=== PATIENT | male | born 1960 | race Caucasian/White ===

== ENCOUNTER 2018-04-05 09:32 | Outpatient (CLI) | payer OTHER ==
--- NOTE | 2018-04-05 20:34 | RAD ---
CERVICAL SPINE TWO VIEWS 04/05/18 AP and lateral views are provided with no prior films available for comparison. The disc spaces are n ormal in height. There are prominent anterior osteophytes beginning at C3 and below. The largest is a t the C5-C6 interspace anteriorly and to a lesser extent C6-C7. If there are radicular symptoms, then an MRI would be needed to assess the possibility of neural impingement. No fracture or dislocation w as seen. the C1-2 dens distance is normal and the soft tissues are normal in thickness. IMPRESSION: Various osteophytes as described, most prominent in the lower cervical region. Consider MRI if radic ular symptoms persists. POS: HOME
== END 2018-04-05 09:33 | disposition home or self-care (01) ==
LOC: BURRAD 09:32
PROVIDERS: ATTEND Family Medicine
DX: M47.22 Other spondylosis with radiculopathy, cervical region (principal)
CPT/HCPCS: 72040